=== PATIENT | female | born 1995 | race Caucasian/White ===

== ENCOUNTER 2017-12-23 23:15 | Emergency (ER) | payer SELFPAY ==
--- NOTE | 2017-12-23 23:51 | EDPHYS ---
Physician Documentation [facility] Name: Dora Schroeder Age: 22 yrs Sex: Female : 1995 Arrival Date: 12/23/2017 Time: 23:23 Bed 27 Private MD: ED Physician Brian Boo HPI: 12/23 23:46 This 22 yrs old Female presents to ER via Ambulatory with complaints of Rash. pkl 23:46 The patient's rash thought to be caused by Contact allergy. The rash is located on the pkl both legs. The rash can be described as urticarial. Onset: The symptoms/episode began/occurred today. Associated signs and symptoms: Pertinent positives: itching. Patient said she started using a new body wash last night.. 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 - Social history:: Smoking status: Patient uses tobacco products, smokes one-half pack cigarettes per day, Patient uses alcohol, every other day. Patient/guardian denies using. - Ebola Screening: : No symptoms or risks identified at this time. ROS: 23:46 Eyes: Negative for injury, pain, redness, and discharge, ENT: Negative for injury, pkl pain, and discharge, Neck: Negative for injury, pain, and swelling, Cardiovascular: Negative for chest pain, palpitations, and edema, Respiratory: Negative for shortness of breath, cough, wheezing, and pleuritic chest pain, Abdomen/GI: Negative for abdominal pain, nausea, vomiting, diarrhea, and constipation, Back: Negative for injury and pain, : Negative for injury, bleeding, discharge, and swelling, Neuro: Negative for headache, weakness, numbness, tingling, and seizure. 23:46 Skin: Positive for rash, of the both legs. Exam: 23:46 Head/Face: Normocephalic, atraumatic. Eyes: Pupils equal round and reactive to light, pkl extra-ocular motions intact. Lids and lashes normal. Conjunctiva and sclera are non-icteric and not injected. Cornea within normal limits. Periorbital areas with no swelling, redness, or edema. ENT: Nares patent. No nasal discharge, no septal abnormalities noted. Tympanic membranes are normal and external auditory canals are clear. Oropharynx with no redness, swelling, or masses, exudates, or evidence of obstruction, uvula midline. Mucous membranes moist. Neck: Trachea midline, no thyromegaly or masses palpated, and no cervical lymphadenopathy. Supple, full range of motion without nuchal rigidity, or vertebral point tenderness. No Meningismus. Chest/axilla: Normal chest wall appearance and motion. Nontender with no deformity. No lesions are appreciated. Cardiovascular: Regular rate and rhythm with a normal S1 and S2. No gallops, murmurs, or rubs. Normal PMI, no JVD. No pulse deficits. Respiratory: Lungs have equal breath sounds bilaterally, clear to auscultation and percussion. No rales, rhonchi or wheezes noted. No increased work of breathing, no retractions or nasal flaring. Abdomen/GI: Soft, non-tender, with normal bowel sounds. No distension or tympany. No guarding or rebound. No evidence of tenderness throughout. Back: No spinal tenderness. No costovertebral tenderness. Full range of motion. MS/ Extremity: Pulses equal, no cyanosis. Neurovascular intact. Full, normal range of motion. Neuro: Awake and alert, GCS 15, oriented to person, place, time, and situation. Cranial nerves II-XII grossly intact. Motor strength 5/5 in all extremities. Sensory grossly intact. Cerebellar exam normal. Normal gait. 23:46 Skin: rash can be described as urticarial, on the both legs. Vital Signs: 23:39 BP 122 / 85; Pulse 78; Resp 18; Temp 98.8(O); Pulse Ox 100% on R/A; Weight 94.8 kg; mg2 Height 5 ft. 7 in. (170.18 cm); Pain 0/10; 23:39 Body Mass Index 32.73 (94.80 kg, 170.18 cm) mg2 MDM: 23:28 Patient medically screened. pkl 23:50 Data reviewed: vital signs, nurses notes. pkl Administered Medications: 23:53 Drug: SOLU-Medrol 125 mg Route: IM; Site: right gluteus; mg2 23:59 Follow up: Response: No adverse reaction; Medication administered at discharge. mg2 23:53 Drug: Benadryl 25 mg Route: IM; Site: left gluteus; mg2 23:59 Follow up: Response: No adverse reaction; Medication administered at discharge. mg2 Disposition: 12/23/17 23:50 Discharged to Home. Impression: Urticaria. - Condition is Stable. - Medication Reconciliation Form, Thank You Letter, Antibiotic Education, Prescription Opioid Use form. - Follow up: Private Physician; When: 2 - 3 days; Reason: Re-evaluation by your physician. - Problem is new. - Symptoms have improved. Signatures: Brian Boo MD MD pkl Suresh Palmer RN RN mg2 Corrections: (The following items were deleted from the chart) 12/24 00:00 12/23 23:50 12/23/2017 23:50 Discharged to Home. Impression: Urticaria. Condition is mg2 Stable. Forms are Medication Reconciliation Form, Thank You Letter, Antibiotic Education, Prescription Opioid Use. Follow up: Private Physician; When: 2 - 3 days; Reason: Re-evaluation by your physician. Problem is new. Symptoms have improved. pkl
--- NOTE | 2017-12-23 23:51 | ER ---
Nurse's Notes [facility] Name: Dora Schroeder Age: 22 yrs Sex: Female : 1995 Arrival Date: 12/23/2017 Time: 23:23 Bed 27 Private MD: Diagnosis: Urticaria Presentation: 12/23 23:36 Presenting complaint: Patient states: she started to have big, raised rash in her body mg2 this morning. benadryl was taken but to no relief. she said she started using a new bodywash last night and probably that's the cause. she is also on amoxicillin for 2 weeks now for her tooth. Transition of care: patient was not received from another setting of care. Onset of symptoms was December 23, 2017. Risk Assessment: Do you want to hurt yourself or someone else? Patient reports no desire to harm self or others. Initial Sepsis Screen: Does the patient meet any 2 criteria? No. Patient's initial sepsis screen is negative. Does the patient have a suspected source of infection? No. Patient's initial sepsis screen is negative. Care prior to arrival: None. 23:36 Method Of Arrival: Ambulatory mg2 23:36 Acuity: CLAUDIA 4 mg2 Triage Assessment: 23:41 General: Appears in no apparent distress. comfortable, Behavior is calm, cooperative. mg2 Pain: Denies pain. EENT: No signs and/or symptoms were reported regarding the EENT system. Neuro: Level of Consciousness is awake, alert, obeys commands, Oriented to person, place, time, situation. Cardiovascular: Capillary refill < 3 seconds Patient's skin is warm and dry. Respiratory: Airway is patent Respiratory effort is even, unlabored, Respiratory pattern is regular, symmetrical. GI: No signs and/or symptoms were reported involving the gastrointestinal system. : No signs and/or symptoms were reported regarding the genitourinary system. Derm: Skin is intact, Skin is pink, warm \T\ dry. normal, Rash noted that is itchy, red, raised. Musculoskeletal: No signs and/or symptoms reported regarding the musculoskeletal system. 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 - Social history:: Smoking status: Patient uses tobacco products, smokes one-half pack cigarettes per day, Patient uses alcohol, every other day. Patient/guardian denies using. - Ebola Screening: : No symptoms or risks identified at this time. Screenin:40 Abuse screen: Denies threats or abuse. Denies injuries from another. Nutritional mg2 screening: No deficits noted. Tuberculosis screening: No symptoms or risk factors identified. Fall Risk None identified. Assessment: 23:45 General: Appears in no apparent distress. uncomfortable, Behavior is calm, cooperative. mg2 Pain: Denies pain. Neuro: Level of Consciousness is awake, alert, obeys commands, Oriented to person, place, time, situation. Cardiovascular: Capillary refill < 3 seconds Patient's skin is warm and dry. Respiratory: Airway is patent Respiratory effort is even, unlabored, Respiratory pattern is regular, symmetrical. GI: No signs and/or symptoms were reported involving the gastrointestinal system. : No signs and/or symptoms were reported regarding the genitourinary system. EENT: No signs and/or symptoms were reported regarding the EENT system. Derm: Rash noted that is itchy, red, raised, urticaria. Vital Signs: 23:39 BP 122 / 85; Pulse 78; Resp 18; Temp 98.8(O); Pulse Ox 100% on R/A; Weight 94.8 kg; mg2 Height 5 ft. 7 in. (170.18 cm); Pain 0/10; 23:39 Body Mass Index 32.73 (94.80 kg, 170.18 cm) mg2 ED Course: 23:23 Patient arrived in ED. es 23:28 Brian Boo MD is Attending Physician. pkl 23:36 Suresh Palmer, ALBA is Primary Nurse. mg2 23:38 Triage completed. mg2 23:40 Arm band placed on. mg2 23:40 Patient has correct armband on for positive identification. Pulse ox on. NIBP on. Door mg2 closed. Warm blanket given. 23:40 No provider procedures requiring assistance completed. mg2 08 00:00 Patient did not have IV access during this emergency room visit. mg2 Administered Medications: 12/23 23:53 Drug: SOLU-Medrol 125 mg Route: IM; Site: right gluteus; mg2 23:59 Follow up: Response: No adverse reaction; Medication administered at discharge. mg2 23:53 Drug: Benadryl 25 mg Route: IM; Site: left gluteus; mg2 23:59 Follow up: Response: No adverse reaction; Medication administered at discharge. mg2 Outcome: 23:50 Discharge ordered by . beto 12/24 00:00 Discharged to home ambulatory. mg2 Condition: stable Discharge instructions given to patient, Instructed on discharge instructions, follow up and referral plans. medication usage, Demonstrated understanding of instructions, follow-up care, medications, Prescriptions given X 3. 00:00 Patient left the ED. mg2 Signatures: Brian Boo MD MD pkl Salyer, Edna es Gardose, Michele, RN RN mg2
[2017-12-23] MEDS ORDERED: METHYLPREDNISOLONE 125 MG INJ ONE (23:52)
[2017-12-23] MEDS ORDERED: DIPHENHYDRAMINE 50 MG/ML VIAL ONE (23:53)
== END 2017-12-24 | disposition home or self-care (01) ==
LOC: ER 23:15
DX: L50.9 Urticaria, unspecified (principal); F17.210 Nicotine dependence, cigarettes, uncomplicated
CPT/HCPCS: 96372; 99283; J2930

== ENCOUNTER 2022-10-07 22:36 | Emergency (ER) | payer SELFPAY ==
[2022-10-07] MEDS ORDERED: ONDANSETRON 4 MG/2 ML VIAL ONE (23:20)
[2022-10-07] MEDS ORDERED: NA CHLORIDE 0.9% 1,000 ML ONE (23:20)
[2022-10-07] MEDS ORDERED: KETOROLAC 30 MG/ML INJ ONE (23:20)
[2022-10-07 23:29] LABS: Absolute Lymphocytes (CBC) 2.9 K/uL (0.7-4.9); Hematocrit 39.2 % (36.0-45.0); MCV 98.6 fL (80-100); MPV 7.8 fL (7.6-11.3); RBC Red Blood Cell Count 3.97 M/uL (3.86-4.86)
[2022-10-07 23:41] LABS: Albumin 3.4 g/dL (3.4-5.0); Bilirubin Total 0.4 mg/dL (0.2-1.0); Potassium 3.6 mEq/L (3.5-5.1)
[2022-10-07 23:51] LABS: Specific Gravity 1.015 (1.005-1.030)
[2022-10-07 23:54] LABS: Specific Gravity 1.015 (1.005-1.030); Urine Bacteria <20 /HPF (<20); Urine Bilirubin NEGATIVE (Negative); Urine Blood 1+ (Negative); Urine Clarity Turbid (Clear); Urine Color Yellow (Yellow); Urine Crystals Unidentified Few /HPF (None Seen); Urine Glucose NEGATIVE (Negative); Urine Mucus Slight /HPF (None Seen); Urine Protein 1+ (Negative); Urine RBC 21-50 /HPF (None Seen); Urine Urobilinogen Normal (Normal); Urine WBC Clump Few /HPF (None Seen)
--- NOTE | 2022-10-08 01:11 | EDPHYS ---
Physician Documentation [facility] Name: Dora Schroeder Age: 27 yrs Sex: Female : 1995 Arrival Date: 10/07/2022 Time: 22:33 Bed 18 Private MD: ED Physician Sudha Abbott HPI: 10/08 00:49 This 27 yrs old Female presents to ER via Ambulatory with complaints of Urinary kb Incontinence, Back Pain. 10/07 22:48 Wednesday started having urinary frequency, low back pain on Wednesday. Today has had right kb flank pain, urinating small amounts, pressure in bladder. . 10/08 00:53 The patient presents with urinary symptoms. Modifying factors: The symptoms are kb alleviated by nothing, the symptoms are aggravated by nothing. Associated signs and symptoms: Pertinent positives: urinary frequency. Severity of symptoms: At their worst the symptoms were moderate, in the emergency department the symptoms are unchanged. The patient has not experienced similar symptoms in the past. The patient has not recently seen a physician. 00:53 Onset: The symptoms/episode began/occurred 6 day(s) ago. kb Historical: - Allergies: 10/07 23:25 No Known Allergies; ha1 - Home Meds: 23:25 None [Active]; ha1 - Immunization history:: Adult Immunizations up to date. - Social history:: Smoking status: Patient reports the use of cigarette tobacco products, smokes one-half pack cigarettes per day. ROS: 10/08 00:51 Constitutional: Negative for fever, chills, and weight loss. kb Abdomen/GI: Positive for abdominal pain, of the suprapubic area, right lower quadrant and left lower quadrant. : Positive for urinary symptoms, urinary frequency, small amounts. All other systems are negative. 00:52 Back: Positive for pain at rest, of the low back area. kb Exam: 00:52 Constitutional: This is a well developed, well nourished patient who is awake, alert, kb and in no acute distress. Head/Face: Normocephalic, atraumatic. ENT: Moist Mucous membranes Cardiovascular: Regular rate and rhythm with a normal S1 and S2. No gallops, murmurs, or rubs. No pulse deficits. Respiratory: Respirations even and unlabored. No increased work of breathing. Talking in full sentences Skin: Warm, dry with normal turgor. Normal color. MS/ Extremity: Pulses equal, no cyanosis. Neurovascular intact. Full, normal range of motion. Neuro: Awake and alert, GCS 15, oriented to person, place, time, and situation. Moves all extremities. Normal gait. 00:52 Abdomen/GI: Inspection: abdomen appears normal, Bowel sounds: normal, Palpation: soft, in all quadrants, mild abdominal tenderness, in the right lower quadrant and left lower quadrant, moderate abdominal tenderness, in the suprapubic area. 00:52 Back: CVA tenderness, that is mild, is noted bilaterally. Vital Signs: 10/07 22:51 BP 136 / 94; Pulse 91; Resp 16 S; Temp 97.9(O); Pulse Ox 97% on R/A; Weight 113.4 kg; ha1 Height 5 ft. 7 in. ; 23:50 BP 127 / 74; Pulse 74; Resp 17 S; Pulse Ox 97% on R/A; 1 10/08 00:50 BP 117 / 86; Pulse 70; Resp 18 S; Pulse Ox 98% on R/A; 1 10/07 22:51 Body Mass Index 39.16 (113.40 kg, 170.18 cm) [facility] MDM: 10/07 22:40 Patient medically screened. kb 10/08 00:50 Differential diagnosis: kidney stone, urinary tract infection, pyelonephritis. Data kb reviewed: vital signs, nurses notes. 01:09 Counseling: I had a detailed discussion with the patient and/or guardian regarding: the kb historical points, exam findings, and any diagnostic results supporting the discharge/admit diagnosis, lab results, radiology results, the need for outpatient follow up, a family practitioner, to return to the emergency department if symptoms worsen or persist or if there are any questions or concerns that arise at home. 10/07 22:47 Order name: Test, Urine; Complete Time: 00:02 kb 10/07 22:47 Order name: Urinalysis w/ reflexes; Complete Time: 00:02 kb 10/07 22:51 Order name: CBC with Diff; Complete Time: 23:39 kb 10/07 22:51 Order name: CMP; Complete Time: 00:02 kb 10/07 22:51 Order name: Lipase; Complete Time: 00:02 kb 10/07 23:58 Order name: Urine Culture EDMS 10/07 22:51 Order name: CT Abd/Pelvis - IV Contrast Only 10/07 22:51 Order name: IV Saline Lock; Complete Time: 23:05 kb 10/07 22:51 Order name: Labs collected and sent; Complete Time: 23:05 kb 10/07 22:51 Order name: Bladder Scanner; Complete Time: 23:47 kb Administered Medications: 10/07 23:03 Drug: NS 0.9% IV 1000 ml Route: IV; Rate: 1 bolus; Site: right antecubital; [facility] 23:03 Drug: TORadol - Ketorolac IVP 15 mg Route: IVP; Site: right antecubital; [facility] 23:06 Drug: Ondansetron IVP 4 mg Route: IVP; Site: right antecubital; [facility] 10/08 01:35 Drug: Rocephin IV 1 grams Route: IV; Rate: calculated rate; Site: right antecubital; [facility] Disposition Summary: 10/08/22 01:09 Discharge Ordered Location: Home kb Condition: Stable kb Diagnosis - UTI/ Urinary tract infection, site not specified kb Followup: kb - With: Emergency Department - When: As needed - Reason: Worsening of condition Followup: kb - With: Private Physician - When: 2 - 3 days - Reason: Recheck today's complaints, Continuance of care, Re-evaluation by your physician Discharge Instructions: - Discharge Summary Sheet kb - Urinary Tract Infection, Adult, [id number] kb Forms: - Medication Reconciliation Form kb - Thank You Letter kb - Antibiotic Education kb - Prescription Opioid Use kb Prescriptions: - Augmentin 875-125 mg Oral Tablet - take 1 tablet by ORAL route every 12 hours for 10 days; 20 tablet; Refills: 0, kb Product Selection Permitted Signatures: Dispatcher [employer] EDMS Mercedes Sharif, Halima Greene, RN RN ha1
--- NOTE | 2022-10-08 01:11 | ER ---
Nurse's Notes [facility] Name: Dora Schroeder Age: 27 yrs Sex: Female : 1995 Arrival Date: 10/07/2022 Time: 22:33 Bed 18 Private MD: Diagnosis: UTI/ Urinary tract infection, site not specified Presentation: 10/07 22:51 Chief complaint: Patient states: I have a back pain that radiates to my pubic area. ha1 22:51 Method Of Arrival: Ambulatory ha1 22:51 Coronavirus screen: Vaccine status: Patient reports being unvaccinated. Ebola Screen: ha1 No symptoms or risks identified at this time. Initial Sepsis Screen: Does the patient meet any 2 criteria? No. Patient's initial sepsis screen is negative. Does the patient have a suspected source of infection? No. Patient's initial sepsis screen is negative. Risk Assessment: Do you want to hurt yourself or someone else? Patient reports no desire to harm self or others. Onset of symptoms was October 07, 2022. 22:51 Acuity: CLAUDIA 3 ha1 Triage Assessment: 22:51 General: Appears comfortable, Behavior is calm, cooperative. ha1 22:51 EENT: No signs and/or symptoms were reported regarding the EENT system. Neuro: Level of ha1 Consciousness is awake, alert, obeys commands, Oriented to person, place, time, situation. Cardiovascular: Patient's skin is warm and dry. Respiratory: Airway is patent Respiratory effort is even, unlabored, Respiratory pattern is regular, symmetrical. GI: No signs and/or symptoms were reported involving the gastrointestinal system. : Urine is cloudy, Reports urinary frequency. Derm: Skin is pink, warm \T\ dry. Musculoskeletal: Circulation, motion, and sensation intact. Reports pain in right lower back. 23:25 Pain:. ha1 Historical: - Allergies: 23:25 No Known Allergies; ha1 - Home Meds: 23:25 None [Active]; ha1 - Immunization history:: Adult Immunizations up to date. - Social history:: Smoking status: Patient reports the use of cigarette tobacco products, smokes one-half pack cigarettes per day. Screenin:51 [facility] ED Fall Risk Assessment (Adult) History of falling in the last 3 months, ha1 including since admission No falls in past 3 months (0 pts) Confusion or Disorientation No (0 pts) Intoxicated or Sedated No (0 pts) Impaired Gait No (0 pts) Mobility Assist Device Used No (0 pt) Altered Elimination No (0 pt) Score/Fall Risk Level 0 - 2 = Low Risk Oriented to surroundings, Maintained a safe environment, Educated pt \T\ family on fall prevention, incl call for assistance when getting out of bed. Abuse screen: Denies threats or abuse. Denies injuries from another. Nutritional screening: No deficits noted. Tuberculosis screening: No symptoms or risk factors identified. Assessment: 22:51 Reassessment: see triage assessment. ha1 23:50 Reassessment: Patient and/or family updated on plan of care and expected duration. Pain ha1 level reassessed. Patient is alert, oriented x 3, equal unlabored respirations, skin warm/dry/pink. Patient states feeling better. Patient states symptoms have improved. Vital Signs: 22:51 BP 136 / 94; Pulse 91; Resp 16 S; Temp 97.9(O); Pulse Ox 97% on R/A; Weight 113.4 kg; ha1 Height 5 ft. 7 in. ; 23:50 BP 127 / 74; Pulse 74; Resp 17 S; Pulse Ox 97% on R/A; ha1 10/08 00:50 BP 117 / 86; Pulse 70; Resp 18 S; Pulse Ox 98% on R/A; ha1 10/07 22:51 Body Mass Index 39.16 (113.40 kg, 170.18 cm) [facility] ED Course: 10/07 22:38 Patient arrived in ED. ag3 22:40 Mercedes Sharif F[facility]-C [facility] kb 22:40 Sudha Abbott MD is Attending Physician. kb 23:06 Halima Barraza, ALBA is Primary Nurse. ha1 23:06 Inserted saline lock: 22 gauge in right antecubital area, using aseptic technique. ds4 Blood collected. 23:25 Triage completed. ha1 23:47 Test, Urine Sent. ha1 23:47 Urinalysis w/ reflexes Sent. 10/08 00:41 CT Abd/Pelvis - IV Contrast Only In Process Unspecified. EDMS Administered Medications: 10/07 23:03 Drug: NS 0.9% IV 1000 ml Route: IV; Rate: 1 bolus; Site: right antecubital; ha1 23:03 Drug: TORadol - Ketorolac IVP 15 mg Route: IVP; Site: right antecubital; ha1 23:06 Drug: Ondansetron IVP 4 mg Route: IVP; Site: right antecubital; ha1 10/08 01:35 Drug: Rocephin IV 1 grams Route: IV; Rate: calculated rate; Site: right antecubital; ha1 Outcome: 01:09 Discharge ordered by MD. fernando 01:51 Patient left the ED. ha1 Addendum: 10/12/2022 15:05 Addendum: Culture Results: Positive urine culture. Bacteria is resistant to, has j l7 intermediate sensitivity, or is not tested against prescribed antibiotics. Report given to GALINA for further evaluation and then to sap developer for follow up with patient. Phone call Attempt #1 Bacteria with intermediate sensitivity to prescribed antibiotics. Pt reports significant improvement in symptoms, no additional antibiotics needed. Signatures: Dispatcher [employer] EDMS Mercedes Sharif, NEWS CONTENT SPECIALIST-C NEWS CONTENT SPECIALIST-CkElvin Zhou ds4 Yuan Adair RN RN [id number] Gabi Lee ag3 Halima Barraza, ALBA RN ha1 Corrections: (The following items were deleted from the chart) 10/08 00:05 10/07 23:25 General: Appears comfortable, Behavior is calm, cooperative, ha1 ha1
[2022-10-08] MEDS ORDERED: CEFTRIAXONE 1000 MG/VIAL ONE (01:48)
[2022-10-08 02:33] VITALS: TEMP 97.9
[2022-10-08 02:36] VITALS: BP 117/86; O2SAT 98
--- NOTE | 2022-10-08 22:34 | RAD REPORT ---
EXAM DESCRIPTION: CT - Abdomen Pelvis W Contrast - 10/08/2022 7:02 am CLINICAL HISTORY: Right flank pain, urinary incontinence COMPARISON: None. TECHNIQUE: CT ABDOMEN PELVIS WITH IV CONTRAST on 10/07/2022 10:51 PM CDT This exam was performed according to our departmental dose-optimization program, which includes autom ated exposure control, adjustment of the mA and/or kV according to patient size and/or use of iterati ve reconstruction technique. FINDINGS: Lower lungs are clear. Abdomen: The liver is normal in appearance. There is no biliary dilatation. Gallbladder is decompress ed. The pancreas and spleen are normal in appearance. The adrenal glands and kidneys are unremarkable . Abdominal aorta is normal in course and caliber without aneurysm. There is no free air. There is no r etroperitoneal adenopathy. Pelvis: There is no bowel obstruction. Urinary bladder is unremarkable. There is no free fluid. Uteru s is normal in size. Appendix is normal. Skeleton: There are no acute osseous findings. No suspicious bony lesions. IMPRESSION: No acute findings. Electronically signed by: Bishop Whyte MD 10/08/2022 12:51 AM CDT Due to temporary technical issues with the PACS/Fluency reporting system, reports are being signed by the in house radiologists without review as a courtesy to insure prompt reporting. The interpreting radiologist is fully responsible for the content of the report.
== END 2022-10-08 01:51 | disposition home or self-care (01) ==
LOC: ER 22:36
DX: N39.0 Urinary tract infection, site not specified (principal); F17.210 Nicotine dependence, cigarettes, uncomplicated
CPT/HCPCS: 36415; 74177; 80053; 81001; 81025; 83690; 85025; 87077; 87086; 87088; 87186; 96374; 96375; 99284; J0696; J2405; J7030; Q9967